=== PATIENT | female | born 1950 | race Caucasian/White ===

== ENCOUNTER 2020-09-04 09:16 | Emergency (ER) | payer MEDICARE, BC ==
[2020-09-04] MEDS ORDERED: Nitroglycerin 0.4 MG Tab.SL SL ONE ×2 (09:21→09:51)
[2020-09-04] MEDS ORDERED: Nitroglycerin/D5W 25 MG/250 ML BOTTLE IV SCH ×2 (09:30→11:00)
[2020-09-04] MEDS ORDERED: Alum Hydroxide/Mag Hydroxide 30 ML, Lidocaine 2% 15 ML PO ONE ×2 (09:35)
--- NOTE | 2020-09-04 09:45 | EDM.PDOC ---
ED HPI GENERAL MEDICAL PROBLEM - General Stated Complaint: CHEST PAIN Time Seen by Provider: 09/04/20 09:20 Source of Information: Reports: Patient History Limitations: Reports: No Limitations - History of Present Illness INITIAL COMMENTS - FREE TEXT/NARRATIVE: c/o cp x 3h pt with mid SSCP X 2 last night, lasted 20 min each, resolved after Tums x 2, did not eat supper as she thought it was d/t to heartburn and did not want to make it worse, slept fine altho she awoke to let the dog out, after letting the dog out she again had SSCP which went away after Tums x 2 and a glass of water at 6:30a she awoke, again had CP, took Tums x 2, this time it did not go away, did not eat bfast or drink fluids went to clinic and was give ASA 324 mg and was sent here BP 210/96 at clinic which pt says is d/t to pain, last saw PCP Valeria Huggins in April and says her SBP was 156 then takes her HCTZ and losarten at noon, says she has not missed any doses SSCP is "squeezing", feels it back btw shoulder blades as well, has numbness down both arms PSH includes b/l TKR and R elbow surgery PMH includes inc'd BMI not seen here perviously, no other labs or imaging or records in EHR ([facility]) CP 10 on arrival at ED, dec'd to 01/31 after SL NTG x 1 EKG on arrival here with strain pattern BP 224/96 here dec'd to 192/73 after NTG SL x 1, BP 173/79 after a 2nd NTG SL pCxR underpenetrated and appears neg on prelim ED read, no inc'd mediastrinum, no cardiomegaly, no infiltrates, CVAs appear clear CP dec'd 05/07 to 310 after NTG SL x 1, then was almost gone after GI cocktail, given a 2nd NTG SL d/t high BP, then pt said she was pain free SBP dec'd 32 after SL NTG x 1, and another 29 after 2nd SL NTG no n/v lives with smoked 1 pack/wk x 50y, not currently mid chest and between shoulder blade Pain Score (Numeric/FACES): 6 - Related Data Allergies Allergy/AdvReac Type Severity Reaction Status Date / Time mold Allergy Other Verified 09/04/20 09:49 Home Meds: Home Meds Losartan Potassium [Cozaar] 100 mg PO DAILY 09/04/20 [History] hydroCHLOROthiazide [Hydrochlorothiazide] 25 mg PO DAILY 09/04/20 [History] ED ROS GENERAL - Review of Systems Review Of Systems: See Below Constitutional: Reports: No Symptoms. Denies: Fever, Chills, Weakness, Night Sweats, Diaphoresis HEENT: Reports: No Symptoms Respiratory: Reports: No Symptoms. Denies: Shortness of Breath, Pleuritic Chest Pain, Cough Cardiovascular: Reports: Chest Pain Endocrine: Reports: No Symptoms GI/Abdominal: Reports: No Symptoms : Reports: No Symptoms Musculoskeletal: Reports: No Symptoms Skin: Reports: No Symptoms Neurological: Reports: No Symptoms Psychiatric: Reports: No Symptoms Hematologic/Lymphatic: Reports: No Symptoms Immunologic: Reports: No Symptoms ED EXAM, GI/ABD - Physical Exam Exam: See Below Exam Limited By: No Limitations General Appearance: Alert, WD/WN, No Apparent Distress Eyes: Bilateral: Normal Appearance Ears: Normal External Exam, Hearing Grossly Normal Head: Atraumatic, Normocephalic Neck: Normal Inspection, Supple, Non-Tender, Full Range of Motion. No: Lymphadenopathy (R), Lymphadenopathy (L) Respiratory/Chest: No Respiratory Distress, Lungs Clear, Normal Breath Sounds, No Accessory Muscle Use, Chest Non-Tender, Other (ribs NT) Cardiovascular: Regular Rate, Rhythm, No JVD, No Murmur, Other (1-2+ edema to knees b/l, trace edema to groin b/l) GI/Abdominal Exam: Soft, Non-Tender, No Distention Back Exam: Normal Inspection, Full Range of Motion. No: CVA Tenderness (R), CVA Tenderness (L) Extremities: Non-Tender Neurological: Alert, Oriented, CN II-XII Intact, Normal Cognition, No Motor/Sensory Deficits Psychiatric: Normal Affect, Normal Mood Skin Exam: Warm, Dry, Intact, Normal Color, No Rash Lymphatic: No Adenopathy Course - Vital Signs Last Recorded V/S: Last Vital Signs Temp 36.6 C 09/04/20 09:16 Pulse 76 09/04/20 09:16 Resp 17 09/04/20 09:16 BP 173/79 H 09/04/20 09:48 Pulse Ox 96 09/04/20 09:16 - Orders/Labs/Meds Orders: Active Orders 24 hr Category Date Time Status EKG Documentation Completion [RC] ASDIRECTED Care 09/04/20 09:23 Active EKG Documentation Completion [RC] ASDIRECTED Care 09/04/20 09:52 Active Chest 1V Frontal [CR] Stat Exams 09/04/20 09:22 Taken GLYCOSYLATED HEMOGLOBIN,HGBA1C [CHEM] Stat Lab 09/04/20 10:19 Ordered PTT,PARTIAL THROMBOPLSTIN TIME [COAG] Stat Lab 09/04/20 10:43 Ordered UA W/MICROSCOPIC [URIN] Stat Lab 09/04/20 09:22 Ordered Heparin Sodium/0.45% NaCl [Heparin 25,000 Units in 1/2 Med 09/04/20 10:44 Ordered NS 500 ML] 500 ml IV ASDIRECTED Magnesium Sulfate/Water [Magnesium Sulfate in Water Med 09/04/20 10:45 Active Premix] 2 gm in 50 ml IV ONETIME Nitroglycerin/D5W [Nitroglycerin 25 MG/D5W 250 ML] Med 09/04/20 11:00 Ordered 25 mg in 250 ml IV TITRATE Sodium Chloride 0.9% [Normal Saline] 1,000 ml Med 09/04/20 10:39 Ordered IV .BOLUS EKG 12 Lead [EK] Routine Ther 09/04/20 09:22 Ordered EKG 12 Lead [EK] Routine Ther 09/04/20 09:52 Ordered Medication Orders Magnesium Sulfate (Magnesium Sulfate In Water Premix) 2 gm in 50 mls @ 50 mls/hr IV ONETIME ONE Stop: 09/04/20 11:44 Last Admin: 09/04/20 10:42 Dose: 50 mls/hr Documented by: [id number] Sodium Chloride (Normal Saline) 1,000 mls @ 999 mls/hr IV .BOLUS ONE Stop: 09/04/20 11:39 Last Admin: 09/04/20 10:46 Dose: 999 mls/hr Documented by: [id number] Heparin Sodium/Sodium Chloride (Heparin 25,000 Units In 1/2 Ns 500 Ml) 500 mls @ 20 mls/hr IV ASDIRECTED PAVEL Last Admin: 09/04/20 10:52 Dose: 20 mls/hr Documented by: Nitroglycerin/Dextrose (Nitroglycerin 25 Mg/D5w 250 Ml) 25 mg in 250 mls @ 3 mls/hr IV TITRATE PAVEL; Protocol Labs: Laboratory Tests 09/04/20 09/04/20 09/04/20 Range/Units 09:45 09:45 09:45 WBC 9.9 (4.5-12.0) X10-3/uL RBC 5.08 (3.23-5.20) x10(6)uL Hgb 13.5 (11.5-15.5) g/dL Hct 40.8 (30.0-51.3) % MCV 80.3 (80-96) fL MCH 26.5 L (27.7-33.6) pg MCHC 33.0 (32.2-35.4) g/dL RDW 13.4 (11.5-15.5) % Plt Count 317 (125-369) X10(3)uL MPV 6.5 L (7.4-10.4) fL Neut % (Auto) 78.7 (46-82) % Lymph % (Auto) 13.7 (13-37) % Edwards % (Auto) 6.2 (4-12) % Eos % (Auto) 1 (1.0-5.0) % Baso % (Auto) 0 (0-2) % Neut # (Auto) 7.8 (1.6-8.3) # Lymph # (Auto) 1.4 (0.6-5.0) # Edwards # (Auto) 0.6 (0.0-1.3) # Eos # (Auto) 0.1 (0.0-0.8) # Baso # (Auto) 0.0 (0.0-0.2) # D-Dimer, Quantitative 0.30 (0.0-0.59) mg/LFEU Sodium 138 (135-145) mmol/L Potassium 3.6 (3.5-5.3) mmol/L Chloride 97 L (100-110) mmol/L Carbon Dioxide 31 (21-32) mmol/L BUN 15 (7-18) mg/dL Creatinine 1.0 (0.55-1.02) mg/dL Est Cr Clr Drug Dosing TNP Estimated GFR (MDRD) 55 L (>60) BUN/Creatinine Ratio 15.0 (9-20) Glucose 154 H (80-116) mg/dL Calcium 10.2 (8.6-10.2) mg/dL Magnesium (1.8-2.5) mg/dL Total Bilirubin 0.5 (0.1-1.3) mg/dL AST 23 (5-25) IU/L ALT 37 H (12-36) U/L Alkaline Phosphatase 111 (56-112) IU/L Troponin I (4.0-60.3) pg/mL C-Reactive Protein (0.5-0.9) mg/dL NT-Pro-B Natriuret Pep (<=125) pg/mL Total Protein 7.6 (6.0-8.0) g/dL Albumin 3.5 (3.2-4.6) g/dL Globulin 4.1 g/dL Albumin/Globulin Ratio 0.9 09/04/20 09/04/20 Range/Units 09:45 09:45 WBC (4.5-12.0) X10-3/uL RBC (3.23-5.20) x10(6)uL Hgb (11.5-15.5) g/dL Hct (30.0-51.3) % MCV (80-96) fL MCH (27.7-33.6) pg MCHC (32.2-35.4) g/dL RDW (11.5-15.5) % Plt Count (125-369) X10(3)uL MPV (7.4-10.4) fL Neut % (Auto) (46-82) % Lymph % (Auto) (13-37) % Edwards % (Auto) (4-12) % Eos % (Auto) (1.0-5.0) % Baso % (Auto) (0-2) % Neut # (Auto) (1.6-8.3) # Lymph # (Auto) (0.6-5.0) # Edwards # (Auto) (0.0-1.3) # Eos # (Auto) (0.0-0.8) # Baso # (Auto) (0.0-0.2) # D-Dimer, Quantitative (0.0-0.59) mg/LFEU Sodium (135-145) mmol/L Potassium (3.5-5.3) mmol/L Chloride (100-110) mmol/L Carbon Dioxide (21-32) mmol/L BUN (7-18) mg/dL Creatinine (0.55-1.02) mg/dL Est Cr Clr Drug Dosing Estimated GFR (MDRD) (>60) BUN/Creatinine Ratio (9-20) Glucose (80-116) mg/dL Calcium (8.6-10.2) mg/dL Magnesium 1.6 L (1.8-2.5) mg/dL Total Bilirubin (0.1-1.3) mg/dL AST (5-25) IU/L ALT (12-36) U/L Alkaline Phosphatase (56-112) IU/L Troponin I 37.8 (4.0-60.3) pg/mL C-Reactive Protein 2.8 H* (0.5-0.9) mg/dL NT-Pro-B Natriuret Pep 224 H (<=125) pg/mL Total Protein (6.0-8.0) g/dL Albumin (3.2-4.6) g/dL Globulin g/dL Albumin/Globulin Ratio Meds: Medications Generic Name Dose Route Start Last Admin Trade Name Freq PRN Reason Stop Dose Admin Magnesium Sulfate 2 gm in 50 mls @ 50 mls/hr 09/04/20 10:45 09/04/20 10:42 Magnesium Sulfate In Water Premix IV 09/04/20 11:44 50 mls/hr ONETIME ONE Administration Sodium Chloride 1,000 mls @ 999 mls/hr 09/04/20 10:39 09/04/20 10:46 Normal Saline IV 09/04/20 11:39 999 mls/hr .BOLUS ONE Administration Heparin Sodium/Sodium Chloride 500 mls @ 20 mls/hr 09/04/20 10:44 09/04/20 10:52 Heparin 25,000 Units In 1/2 Ns 500 Ml IV 20 mls/hr ASDIRECTED PAVEL Administration Nitroglycerin/Dextrose 25 mg in 250 mls @ 3 mls/hr 09/04/20 11:00 Nitroglycerin 25 Mg/D5w 250 Ml IV TITRATE PAVEL Protocol 5 MCG/MIN Discontinued Medications Generic Name Dose Route Start Last Admin Trade Name Freq PRN Reason Stop Dose Admin Al Hydroxide/Mg Hydroxide 30 0 ml 09/04/20 09:35 09/04/20 09:40 ml/ Lidocaine HCl 15 ml PO 09/04/20 09:36 45 ml ONETIME ONE Administration Heparin Sodium (Porcine) 5,000 units 09/04/20 10:42 Heparin Sodium IVPUSH 09/04/20 10:43 ONETIME ONE Nitroglycerin/Dextrose 25 mg in 250 mls @ 6 mls/hr 09/04/20 09:30 Nitroglycerin 25 Mg/D5w 250 Ml IV TITRATE PAVEL Protocol 10 MCG/MIN Nitroglycerin 0.4 mg 09/04/20 09:21 09/04/20 09:35 Nitrostat SL 09/04/20 09:22 0.4 mg ONETIME ONE Administration Nitroglycerin 0.4 mg 09/04/20 09:51 09/04/20 09:48 Nitrostat SL 09/04/20 09:52 0.4 mg ONETIME ONE Administration - Re-Assessments/Exams Free Text/Narrative Re-Assessment/Exam: 09/04/20 10:18 pt pain free, then used bedside commode and SSCP returned 02/04, given a 3rd NTG and CP 01/07 with BP 175/75 labs show inc'd CRP/BNP/glucose and dec'd GFR trop pending 09/04/20 10:36 trop neg d/w Dr Vega hospitalist here who agrees that pt has unstable angina and needs cardiology evaluation ST depression in anterior leads concerning for prox LAD or L main occlusion pt agreeable for transfer to [place] call placed to [facility], their hospitalist is on another call and will call me back Mg 1.6, will give 2 gm Mg over one hour a 2nd IV line is being started for IV heparin 09/04/20 10:47 wt 312.2 lbs by bed scale, ht 5' 7" by pt report, BMI 48.9 2nd IV started, heparin drip ordered waiting for call back from [place] hospitalist will give 1 liter NS 09/04/20 10:55 d/w hospitalist Dr Alegre at [place] who requested an intermediate bed if pt on a nitro drip BP now inc'd slightly to 156/72, however still having 1/10 squeezing SSCP, nitro drip ordered and Clementina at [facility] notified 09/04/20 11:06 d/w with [place] on mobile phone [phone]. He was given an update on pt's condition and agrees with transfer and treatment plan. He said that he is in the middle of harvest and plans to call [facility] room [id number] for an update from them after she arrives. He said that his is stoic and that "if she says she has 6/10 CP, then she actually has 12/10 CP." Departure - Departure Time of Disposition: 10:55 Disposition: DC/Tfer to Acute Hospital 02 Condition: Good Clinical Impression: Unstable angina, ST segment depression, Elevated blood pressure reading, Former smoker, History of hypertension, Elevated C-reactive protein (CRP), Elevated brain natriuretic peptide (BNP) level, Renal insufficiency, Peripheral edema, Hyperglycemia, Obesity - Discharge Information Referrals: PCP,None [Primary Care Provider] - Sepsis Event Note (ED) - Focused Exam Vital Signs: Vital Signs Temp Pulse Resp BP BP Pulse Ox 09/04/20 09:48 173/79 H 09/04/20 09:35 224/96 H 09/04/20 09:16 36.6 C 76 17 224/96 H 96 - My Orders Last 24 Hours: My Active Orders 09/04/20 09:22 Chest 1V Frontal [CR] Stat UA W/MICROSCOPIC [URIN] Stat EKG 12 Lead [EK] Routine 09/04/20 09:23 EKG Documentation Completion [RC] ASDIRECTED 09/04/20 09:52 EKG Documentation Completion [RC] ASDIRECTED EKG 12 Lead [EK] Routine 09/04/20 10:19 GLYCOSYLATED HEMOGLOBIN,HGBA1C [CHEM] Stat 09/04/20 10:39 Sodium Chloride 0.9% [Normal Saline] 1,000 ml IV .BOLUS 09/04/20 10:43 PTT,PARTIAL THROMBOPLSTIN TIME [COAG] Stat 09/04/20 10:44 Heparin Sodium/0.45% NaCl [Heparin 25,000 Units in 1/2 NS 500 ML] 500 ml IV ASDIRECTED 09/04/20 10:45 Magnesium Sulfate/Water [Magnesium Sulfate in Water Premix] 2 gm in 50 ml IV ONETIME 09/04/20 11:00 Nitroglycerin/D5W [Nitroglycerin 25 MG/D5W 250 ML] 25 mg in 250 ml IV TITRATE - Assessment/Plan Last 24 Hours: My Active Orders 09/04/20 09:22 Chest 1V Frontal [CR] Stat UA W/MICROSCOPIC [URIN] Stat EKG 12 Lead [EK] Routine 09/04/20 09:23 EKG Documentation Completion [RC] ASDIRECTED 09/04/20 09:52 EKG Documentation Completion [RC] ASDIRECTED EKG 12 Lead [EK] Routine 09/04/20 10:19 GLYCOSYLATED HEMOGLOBIN,HGBA1C [CHEM] Stat 09/04/20 10:39 Sodium Chloride 0.9% [Normal Saline] 1,000 ml IV .BOLUS 09/04/20 10:43 PTT,PARTIAL THROMBOPLSTIN TIME [COAG] Stat 09/04/20 10:44 Heparin Sodium/0.45% NaCl [Heparin 25,000 Units in 1/2 NS 500 ML] 500 ml IV ASDIRECTED 09/04/20 10:45 Magnesium Sulfate/Water [Magnesium Sulfate in Water Premix] 2 gm in 50 ml IV ONETIME 09/04/20 11:00 Nitroglycerin/D5W [Nitroglycerin 25 MG/D5W 250 ML] 25 mg in 250 ml IV TITRATE
[2020-09-04] MEDS ORDERED: Magnesium Sulfate/Water 2 GM/50 ML Premix Bag IV STA (10:33)
[2020-09-04] MEDS ORDERED: Sodium Chloride 0.9% 1,000 ML IV ONE (10:39)
[2020-09-04] MEDS ORDERED: Heparin Sodium 5,000 Units/ML Vial IVPUSH ONE (10:42)
[2020-09-04] MEDS ORDERED: Heparin Sodium/0.45% NaCl 500 ML IV SCH (10:44)
[2020-09-04] MEDS ORDERED: Magnesium Sulfate/Water 2 GM/50 ML BAG IV ONE (10:45)
[2020-09-04 11:10] LABS: HEMOGLOBIN A1C 6.4 % (<5.7)
== END 2020-09-04 11:35 ==
LOC: FB.ED 09:16
DX: I20.0 Unstable angina (principal); R94.31 Abnormal electrocardiogram [ECG] [EKG]; I10 Essential (primary) hypertension; Z87.891 Personal history of nicotine dependence; R74.8 Abnormal levels of other serum enzymes; R60.0 Localized edema; E66.9 Obesity, unspecified; N28.9 Disorder of kidney and ureter, unspecified; R73.9 Hyperglycemia, unspecified; Z68.42 Body mass index [BMI] 45.0-49.9, adult; Z91.048 Other nonmedicinal substance allergy status
CPT/HCPCS: 36415; 71045; 80053; 83036; 83735; 83880; 84484; 85025; 85379; 85730; 86140; 93005; 96365; 96368; 99285; A9270; J1644; J3475; J3490; J7030

== ENCOUNTER 2020-12-19 08:56 | Emergency (ER) | payer MEDICARE, BC ==
--- NOTE | 2020-12-19 09:22 | EDM.PDOC ---
ED HPI GENERAL MEDICAL PROBLEM - General Stated Complaint: CHEST/SHOULDER PAIN Time Seen by Provider: 12/19/20 09:21 Source of Information: Reports: Patient History Limitations: Reports: No Limitations - History of Present Illness INITIAL COMMENTS - FREE TEXT/NARRATIVE: 70-year-old female who reports beginning about 3 days ago she developed a pain in her left scapular area that was a pressure type pain that she reports was about a tennis ball size of pressure that seemed to be present no matter what she did. It seemed that at rest she had more of this pain with episodes where it seemed to wrap around her lateral chest to her area right underneath her left breast. This was an aching and somewhat sharp type of pain. These types of pain seemed to only lasts for a few seconds to a minute but they seem to come and go. The sore pain in her left scapular area was basically present all the time. She does not note any worsening of the pain with movement or with deep breath. The pain seems to be worse and have more episodes of these sharp pains more around her chest when she is at rest. She does have a history of coronary artery disease and has had recent stents placed in October 2020 and reports that she is undergoing cardiac rehabilitation and has been doing well(. She denies any increase in her symptoms when doing the rehabilitation and she has done exercises were her heart rate has gone up into the 160s without any problems. The pains seem to be much worse last night with pains going up to 5-7/10 and in the same pattern that they have been over the past 3 days. She has taken her baby aspirin and her Brilinta this morning already. There has been no nausea or vomiting associated with this. No cough. No difficulty breathing. No trauma. She called the nurse at [facility] today and they told her to come to the emergency department for evaluation. Apparently she had a conversation with the rehabilitation person at cardiac rehabilitation yesterday and was felt that there was some muscular type pain. There are no other associated signs or symptoms. There are no other modifying factors. Onset: Other (3 days ago) Duration: Getting Worse Location: Reports: Chest, Back Quality: Reports: Ache, Sharp Severity: Moderate Improves with: Reports: None Worsens with: Reports: None Context: Reports: Other (As above.) Associated Symptoms: Reports: No Other Symptoms Treatments [employer]: Reports: Acetaminophen L shoulder Pain Score (Numeric/FACES): 2 - Related Data Allergies Allergy/AdvReac Type Severity Reaction Status Date / Time mold Allergy Other Verified 12/19/20 09:26 Home Meds: Home Meds Losartan Potassium [Cozaar] 100 mg PO DAILY 09/04/20 [History] hydroCHLOROthiazide [Hydrochlorothiazide] 25 mg PO DAILY 09/04/20 [History] Aspirin 81 mg PO DAILY 12/19/20 [History] Cholecalciferol (Vitamin D3) [Vitamin D3] 2,000 unit PO DAILY 12/19/20 [History] Fish Oil/[place]-3 Fatty Acids [Fish Oil 1,000 MG] 1 each PO DAILY 12/19/20 [History] Metoprolol Succinate [Toprol XL] 25 mg PO DAILY 12/19/20 [History] Niacin 500 mg PO DAILY 12/19/20 [History] Ticagrelor [Brilinta] 90 mg DAILY 12/19/20 [History] Vitamin C/Biotin [Rsbj-Zedh-Sqnrn Gummies] 1 each PO DAILY 12/19/20 [History] Zinc 50 mg PO DAILY 12/19/20 [History] atorvaSTATin [Lipitor] 20 mg PO DAILY 12/19/20 [History] Past Medical History Cardiovascular History: Reports: CAD, High Cholesterol, Hypertension Genitourinary History: Reports: Chronic Renal Insuffiency Endocrine/Metabolic History: Reports: Obesity/BMI 30+ - Past Surgical History HEENT Surgical History: Reports: LASIK Cardiovascular Surgical History: Reports: Coronary Artery Stent, Percutaneous Transluminal Angioplasty Female Surgical History: Reports: Breast Reduction Musculoskeletal Surgical History: Reports: Knee Replacement (Final lateral total knee replacement) Social & Family History - Tobacco Use Tobacco Use Status *Q: Unknown Ever Used Tobacco (Nonsmoker) - Alcohol Use Alcohol Use History: Yes Alcohol Use Frequency: Socially (Occasional glass of wine) - Living Situation & Occupation Living situation: Reports: Occupation: Retired Social History Comment: Lives with her in her own home. ED ROS GENERAL - Review of Systems Review Of Systems: See Below Constitutional: Reports: No Symptoms HEENT: Reports: No Symptoms Respiratory: Reports: No Symptoms Cardiovascular: Reports: Chest Pain GI/Abdominal: Reports: No Symptoms : Reports: No Symptoms Musculoskeletal: Reports: Back Pain (Left scapular pain) Skin: Reports: No Symptoms Neurological: Reports: No Symptoms Hematologic/Lymphatic: Reports: No Symptoms Immunologic: Reports: No Symptoms ED EXAM, GENERAL - Physical Exam Exam: See Below Exam Limited By: No Limitations General Appearance: Alert, WD/WN, No Apparent Distress Eye Exam: Bilateral Eye: EOMI, Normal Inspection, PERRL Ears: Normal External Exam, Hearing Grossly Normal Ear Exam: Bilateral Ear: Auricle Normal Nose: Normal Inspection, Normal Mucosa, No Blood Throat/Mouth: Normal Inspection, Normal Oropharynx, Normal Voice, No Airway Compromise Head: Atraumatic, Normocephalic Neck: Normal Inspection, Supple, Non-Tender, Full Range of Motion Respiratory/Chest: No Respiratory Distress, Lungs Clear, Normal Breath Sounds, No Accessory Muscle Use, Chest Non-Tender Cardiovascular: Normal Peripheral Pulses, Regular Rate, Rhythm, No Murmur Peripheral Pulses: 2+: Radial (L), Radial (R) GI/Abdominal: Normal Bowel Sounds, Soft, Non-Tender, No Mass Back Exam: Full Range of Motion, Other (Mild tenderness with palpation over the left scapular area. Spasm.) Extremities: Normal Inspection, Normal Range of Motion, Non-Tender, No Pedal Edema, Normal Capillary Refill Neurological: Alert, Oriented, CN II-XII Intact, Normal Cognition, No Motor/Sensory Deficits Psychiatric: Normal Affect Skin Exam: Warm, Dry, Intact, Normal Color, No Rash #1 Interpretation EKG Date: 12/19/20 Time: 09:14 Rhythm: NSR Rate (Beats/Min): 74 [place]: Normal P-Wave: Present QRS: Normal ST-T: Normal QT: Normal Comparison: Change From Previous EKG (T-wave inversion and flattening in on the EKG on 09/04/2020 has resolved) Course - Vital Signs Last Recorded V/S: Last Vital Signs Temp 36.7 C 12/19/20 09:05 Pulse 74 12/19/20 11:10 Resp 18 12/19/20 11:10 BP 176/66 H 12/19/20 11:10 Pulse Ox 100 12/19/20 11:10 - Orders/Labs/Meds Orders: Active Orders 24 hr Category Date Time Status EKG Documentation Completion [RC] ASDIRECTED Care 12/19/20 09:40 Active Sodium Chloride 0.9% [Saline Flush] Med 12/19/20 09:39 Active 10 ml FLUSH ASDIRECTED PRN Peripheral IV Insertion Adult [OM.PC] Routine Oth 12/19/20 09:39 Ordered EKG 12 Lead [EK] Routine Ther 12/19/20 09:39 Ordered Medication Orders Sodium Chloride (Saline Flush) 10 ml FLUSH ASDIRECTED PRN PRN Reason: Keep Vein Open Labs: Laboratory Tests 12/19/20 12/19/20 12/19/20 Range/Units 09:10 09:10 09:10 WBC 8.5 (3.0-10.3) x10-3/uL RBC 4.96 (3.60-5.20) x10(6)uL Hgb 12.9 (11.4-15.5) g/dL Hct 40.3 (34.2-48.2) % MCV 81.4 (76.7-100.5) fL MCH 26.0 (23.9-33.9) pg MCHC 32.0 (31.9-34.8) g/dL RDW 14.7 (12.3-16.5) % Plt Count 346 (151-488) x10(3)uL MPV 6.9 L (7.1-12.4) fL Neut % (Auto) 65.8 (30.8-76.2) % Lymph % (Auto) 20.0 (18.4-52.1) % [place] % (Auto) 10.0 (4.4-15.7) % Eos % (Auto) 3.2 (0.6-8.1) % Baso % (Auto) 1.0 (0.2-1.5) % Neut # (Auto) 5.6 (1.5-6.3) x10-3/uL Lymph # (Auto) 1.7 (1.0-4.4) x10-3/uL [place] # (Auto) 0.9 (0.3-1.0) x10-3/uL Eos # (Auto) 0.3 (0.0-0.8) x10-3/uL Baso # (Auto) 0.1 (0.0-0.1) x10-3/uL D-Dimer, Quantitative (0.0-0.59) mg/LFEU Sodium 141 (135-145) mmol/L Potassium 3.7 (3.5-5.3) mmol/L Chloride 101 (100-110) mmol/L Carbon Dioxide 30 (21-32) mmol/L BUN 19 H (7-18) mg/dL Creatinine 0.9 (0.55-1.02) mg/dL Est Cr Clr Drug Dosing 54.94 mL/min Estimated GFR (MDRD) > 60 (>60) BUN/Creatinine Ratio 21.1 H (9-20) Glucose 113 (80-116) mg/dL Calcium 9.0 (8.6-10.2) mg/dL Magnesium 2.0 (1.8-2.5) mg/dL Total Bilirubin 0.4 (0.1-1.3) mg/dL AST 16 D (5-25) IU/L ALT 28 D (12-36) U/L Alkaline Phosphatase 168 H (56-112) IU/L Troponin I 7.0 (4.0-60.3) pg/mL Total Protein 7.8 (6.0-8.0) g/dL Albumin 3.5 (3.2-4.6) g/dL Globulin 4.3 g/dL Albumin/Globulin Ratio 0.8 12/19/20 12/19/20 Range/Units 09:10 11:37 WBC (3.0-10.3) x10-3/uL RBC (3.60-5.20) x10(6)uL Hgb (11.4-15.5) g/dL Hct (34.2-48.2) % MCV (76.7-100.5) fL MCH (23.9-33.9) pg MCHC (31.9-34.8) g/dL RDW (12.3-16.5) % Plt Count (151-488) x10(3)uL MPV (7.1-12.4) fL Neut % (Auto) (30.8-76.2) % Lymph % (Auto) (18.4-52.1) % [place] % (Auto) (4.4-15.7) % Eos % (Auto) (0.6-8.1) % Baso % (Auto) (0.2-1.5) % Neut # (Auto) (1.5-6.3) x10-3/uL Lymph # (Auto) (1.0-4.4) x10-3/uL [place] # (Auto) (0.3-1.0) x10-3/uL Eos # (Auto) (0.0-0.8) x10-3/uL Baso # (Auto) (0.0-0.1) x10-3/uL D-Dimer, Quantitative 0.36 (0.0-0.59) mg/LFEU Sodium (135-145) mmol/L Potassium (3.5-5.3) mmol/L Chloride (100-110) mmol/L Carbon Dioxide (21-32) mmol/L BUN (7-18) mg/dL Creatinine (0.55-1.02) mg/dL Est Cr Clr Drug Dosing mL/min Estimated GFR (MDRD) (>60) BUN/Creatinine Ratio (9-20) Glucose (80-116) mg/dL Calcium (8.6-10.2) mg/dL Magnesium (1.8-2.5) mg/dL Total Bilirubin (0.1-1.3) mg/dL AST (5-25) IU/L ALT (12-36) U/L Alkaline Phosphatase (56-112) IU/L Troponin I 8.1 (4.0-60.3) pg/mL Total Protein (6.0-8.0) g/dL Albumin (3.2-4.6) g/dL Globulin g/dL Albumin/Globulin Ratio Meds: Medications Generic Name Dose Route Start Last Admin Trade Name Freq PRN Reason Stop Dose Admin Sodium Chloride 10 ml 12/19/20 09:39 Saline Flush FLUSH ASDIRECTED PRN Keep Vein Open - Radiology Interpretation Free Text/Narrative:: Portable chest x-ray shows no definite acute abnormality per the radiologist. - Re-Assessments/Exams Free Text/Narrative Re-Assessment/Exam: 12/19/20 11:05: Patient is essentially pain-free. She still has the mild soreness that was described initially. It is reproducible with palpation. Her blood tests are all reassuringly normal. I will repeat the patient's troponins this time begin (it is now 2 hours after her initial troponin) and I will also check a d-dimer. 12/19/20 12:35: Repeat troponin is normal. D-dimer was normal. I feel that we have ruled out DC and I suspect the likelihood that a cardiac etiology for this pain is low. I feel that the pain is likely musculoskeletal in nature. She is stable for discharge at this point. The patient feels couple with plan for discharge. She will be going to cardiac rehabilitation now. Departure - Departure Time of Disposition: 12:40 Disposition: Home, Self-Care 01 Condition: Good Clinical Impression: Chest pain Qualifiers: Chest pain type: unspecified Qualified Code(s): R07.9 - Chest pain, unspecified Thoracic back pain Qualifiers: Chronicity: acute Back pain laterality: left Qualified Code(s): M54.6 - Pain in thoracic spine - Discharge Information Instructions: Nonspecific Chest Pain, Adult, [id number] Referrals: Gaby Huggins NP [Primary Care Provider] - Additional Instructions: Your blood tests were all reassuringly normal. Specifically, you're heart enzyme tests were normal 2. Your chest x-ray was normal. Your EKG was actually improved from the previous EKG when you required stents being placed. You do not appear to have had anything going on with your heart. The pain in your back and chest appears to be muscular in nature. He should be able to do your cardiac rehabilitation. Follow-up with your primary doctor. Back to the emergency department for worsening chest pain, shortness of breath, severe weakness or any other concerning sign or symptom. Sepsis Event Note (ED) - Focused Exam Vital Signs: Vital Signs Temp Pulse Resp BP Pulse Ox 12/19/20 11:10 74 18 176/66 H 100 12/19/20 09:05 36.7 C 74 18 155/68 H 98 - My Orders Last 24 Hours: My Active Orders 12/19/20 09:39 Sodium Chloride 0.9% [Saline Flush] 10 ml FLUSH ASDIRECTED PRN Peripheral IV Insertion Adult [OM.PC] Routine EKG 12 Lead [EK] Routine 12/19/20 09:40 EKG Documentation Completion [RC] ASDIRECTED - Assessment/Plan Last 24 Hours: My Active Orders 12/19/20 09:39 Sodium Chloride 0.9% [Saline Flush] 10 ml FLUSH ASDIRECTED PRN Peripheral IV Insertion Adult [OM.PC] Routine EKG 12 Lead [EK] Routine 12/19/20 09:40 EKG Documentation Completion [RC] ASDIRECTED
[2020-12-19] MEDS ORDERED: Sodium Chloride 0.9% 10 ML Syringe FLUSH PRN (09:39)
--- NOTE | 2020-12-19 10:36 | CR ---
INDICATION: Chest pain. CHEST, ONE VIEW: An AP upright portable view of the chest was obtained 12/19/20 and compared with 09/04/20 again revealing evidence of exogenous obesity. The heart appeared to be near the upper limits of normal in size. The aorta is moderately tortuous. Somewhat heavy markings at the lung bases may be on the basis of emphasis due to poor inspiration. Patchy infiltration and/or pulmonary fibrosis is difficulty to exclude, however. No consolidating pneumonia or definite effusion was seen. IMPRESSION: 1. No definite acute process but difficult to exclude patchy bronchopneumonia in the lung bases due to markings due to somewhat poor inspiration. 2. Probable ASHD. 3. Possible pulmonary fibrosis. 4. Exogenous obesity. MTDD
== END 2020-12-19 13:05 | disposition home or self-care (01) ==
LOC: FB.ED 08:56
DX: M54.6 Pain in thoracic spine (principal); R07.9 Chest pain, unspecified; I25.10 Atherosclerotic heart disease of native coronary artery without angina pectoris; E78.00 Pure hypercholesterolemia, unspecified; I12.9 Hypertensive chronic kidney disease with stage 1 through stage 4 chronic kidney disease, or unspecified chronic kidney disease; N18.9 Chronic kidney disease, unspecified; E66.9 Obesity, unspecified; Z68.42 Body mass index [BMI] 45.0-49.9, adult; Z91.048 Other nonmedicinal substance allergy status; Z79.82 Long term (current) use of aspirin; Z79.899 Other long term (current) drug therapy
CPT/HCPCS: 36415; 71045; 80053; 83735; 84484; 85025; 85379; 93005; 93010; 99284; 99285-25

== ENCOUNTER 2025-03-14 11:12 | Emergency (ER) | payer MEDICARE, BC ==
[2025-03-14] MEDS ORDERED: Sodium Chloride 0.9% 10 ML Syringe FLUSH PRN (11:32)
[2025-03-14] MEDS: Sodium Chloride 0.9% 1,000 ML IV SCH (11:49)
[2025-03-14 11:53] LABS: HEMATOCRIT 29.1 % (34.2-48.2); HEMOGLOBIN 9.8 g/dL (11.4-15.5); MEAN CORPUSCULAR HEMOGLOBIN 26.4 pg (23.9-33.9); MEAN CORPUSCULAR HGB CONC 33.6 g/dL (31.9-34.8); MEAN CORPUSCULAR VOLUME 78.4 fL (76.7-100.5); PLATELET COUNT,PLT 265 x10(3)uL (151-488); RED CELL DISTRIBUTION WIDTH 16.1 % (12.3-16.5); WHITE BLOOD CELL COUNT,WBC 2.1 x10-3/uL (3.0-10.3)
[2025-03-14 12:05] LABS: A/G RATIO 0.5; ALANINE AMINOTRANSFERASE,ALT 54 U/L (12-36); ALKALINE PHOSPHATASE 241 IU/L (56-112); ASPARTATE AMNIOTRANSFERASE,AST 43 IU/L (5-25); BILIRUBIN TOTAL 1.7 mg/dL (0.1-1.3); BLOOD UREA NITROGEN,BUN 30 mg/dL (7-18); BUN/CREATININE RATIO 9.7 (9-20); CALCIUM 8.3 mg/dL (8.6-10.2); CARBON DIOXIDE,CO2 22 mmol/L (21-32); CHLORIDE,CL 95 mmol/L (100-110); EST CRCL DRUG DOSING (CG) 15.01 mL/min; ESTIMATED GFR 15 mL/min (>60); GLUCOSE RANDOM 139 mg/dL (80-116); POTASSIUM,K 3.8 mmol/L (3.5-5.3); PROTEIN TOTAL,TP 5.9 g/dL (6.0-8.0); SODIUM,NA 132 mmol/L (135-145)
[2025-03-14 12:14] LABS: CREATININE 3.1 mg/dL (0.55-1.02); LACTIC ACID 4.2 mmol/L (0.4-2.0)
[2025-03-14 12:16] LABS: BLASTS PERCENT MAN 2 % (0-0); LYMPHOCYTES PERCENT MAN 48 % (13-37); MONOCYTES PERCENT MAN 38 % (4-12); SEG NEUTROPHILS PERCENT MAN 12 % (46-82)
[2025-03-14 12:35] LABS: D-DIMER QUANTITATIVE 0.61 mg/LFEU (0.0-0.59)
[2025-03-14 12:40] LABS: INR 1.19 (1.00-1.24); PROTHROMBIN TIME 12.2 sec (9.0-11.1); PTT,PARTIAL THROMBOPLSTIN TIME 39.7 SECONDS (24.4-33.2)
[2025-03-14] MEDS: Piperacillin/Tazobactam 3.375 GM in Sodium Chloride 0.9% 50 ML IV STA (12:44)
[2025-03-14] MEDS: Lactated Ringers 1,000 ML IV SCH (13:13)
[2025-03-14] MEDS: VANCOmycin 1 GM/200 ML 1 GM in Premix Bag 1 BAG IV STA (13:13)
== END 2025-03-14 14:55 ==
LOC: FB.ED 11:12
DX: A41.9 Sepsis, unspecified organism (principal); I48.20 Chronic atrial fibrillation, unspecified; D64.9 Anemia, unspecified; C50.919 Malignant neoplasm of unspecified site of unspecified female breast; B37.9 Candidiasis, unspecified; E87.1 Hypo-osmolality and hyponatremia; E86.0 Dehydration; N17.9 Acute kidney failure, unspecified; I12.9 Hypertensive chronic kidney disease with stage 1 through stage 4 chronic kidney disease, or unspecified chronic kidney disease; I25.10 Atherosclerotic heart disease of native coronary artery without angina pectoris; E78.00 Pure hypercholesterolemia, unspecified; E11.22 Type 2 diabetes mellitus with diabetic chronic kidney disease; E66.9 Obesity, unspecified; N18.9 Chronic kidney disease, unspecified; M19.90 Unspecified osteoarthritis, unspecified site; Z91.048 Other nonmedicinal substance allergy status; Z79.899 Other long term (current) drug therapy; Z79.82 Long term (current) use of aspirin; Z79.02 Long term (current) use of antithrombotics/antiplatelets
CPT/HCPCS: 36415; 36556; 71045; 80053; 83605; 83880; 84484; 85025; 85379; 85610; 85730; 87040; 93005; 96361; 96365; 99285-25; J2543; J3372; J7030; J7120

== ENCOUNTER 2025-10-03 10:36 | Emergency (ER) | payer MEDICARE, BC ==
[2025-10-03] MEDS ORDERED: Sodium Chloride 0.9% 10 ML Syringe FLUSH PRN (10:37)
[2025-10-03 11:11] LABS: BASOPHILS ABSOLUTE AUTO 0.1 x10-3/uL (0.0-0.1); BASOPHILS PERCENT AUTO 0.5 % (0.2-1.5); EOSINOPHILS ABSOLUTE AUTO 0.2 x10-3/uL (0.0-0.8); EOSINOPHILS PERCENT AUTO 2.0 % (0.6-8.1); LYMPHOCYTES ABSOLUTE AUTO 1.2 x10-3/uL (1.0-4.4); LYMPHOCYTES PERCENT AUTO 11.9 % (18.4-52.1); MEAN PLATELET VOLUME 6.9 fL (7.1-12.4); MONOCYTES ABSOLUTE AUTO 0.9 x10-3/uL (0.3-1.0); MONOCYTES PERCENT AUTO 8.6 % (4.4-15.7); NEUTROPHILS ABSOLUTE AUTO 7.9 x10-3/uL (1.5-6.3); NEUTROPHILS PERCENT AUTO 77.0 % (30.8-76.2); PLATELET COUNT,PLT 281 x10(3)uL (151-488); RED BLOOD CELL COUNT 4.89 x10(6)uL (3.60-5.20); RED CELL DISTRIBUTION WIDTH 15.9 % (12.3-16.5); WHITE BLOOD CELL COUNT,WBC 10.3 x10-3/uL (3.0-10.3)
[2025-10-03 11:14] LABS: BLOOD UREA NITROGEN,BUN 19 mg/dL (7-18); CARBON DIOXIDE,CO2 28 mmol/L (21-32); CHLORIDE,CL 103 mmol/L (100-110); CREATININE 1.0 mg/dL (0.55-1.02); EST CRCL DRUG DOSING (CG) 46.54 mL/min; ESTIMATED GFR 58 mL/min (>60); GLUCOSE RANDOM 115 mg/dL (80-116); POTASSIUM,K 3.8 mmol/L (3.5-5.3); SODIUM,NA 142 mmol/L (135-145)
[2025-10-03 11:18] LABS: INR 1.16 (1.00-1.24); PTT,PARTIAL THROMBOPLSTIN TIME 30.6 SECONDS (24.4-33.2)
[2025-10-03 11:20] LABS: A/G RATIO 0.7; ALANINE AMINOTRANSFERASE,ALT 32 U/L (12-36); ASPARTATE AMNIOTRANSFERASE,AST 32 IU/L (5-25); BILIRUBIN TOTAL 0.7 mg/dL (0.1-1.3); PROTEIN TOTAL,TP 7.4 g/dL (6.0-8.0)
[2025-10-03] MEDS: Dexamethasone 4 MG/ML 5 ML MDV IVPUSH ONE (12:15)
== END 2025-10-03 13:00 ==
LOC: FB.ED 10:36
DX: I48.91 Unspecified atrial fibrillation (principal); H54.7 Unspecified visual loss; C50.919 Malignant neoplasm of unspecified site of unspecified female breast; I25.10 Atherosclerotic heart disease of native coronary artery without angina pectoris; I10 Essential (primary) hypertension; I25.2 Old myocardial infarction; E78.00 Pure hypercholesterolemia, unspecified; E11.9 Type 2 diabetes mellitus without complications; Z95.5 Presence of coronary angioplasty implant and graft; Z91.048 Other nonmedicinal substance allergy status; Z79.899 Other long term (current) drug therapy; Z79.82 Long term (current) use of aspirin
CPT/HCPCS: 70450; 70450-26; 71045; 71045-26; 80053; 82947; 84484; 85025; 85610; 85730; 93005; 93010; 96374; 96375; 99285; 99285-25; J1100; J1953; J2470